=== PATIENT | female | born 1955 | race Caucasian/White ===

== ENCOUNTER 2016-10-10 17:35 | Inpatient (IN) | payer MEDICARE, OTHER ==
--- NOTE | ~2016-10-10 | DS ---
Unit #: [id number] #: [id number] Patient: BESSIE ELLSWORTH [id number] [address] [address] [id number] I MR#: [id number] NAME: BESSIE ELLSWORTH ROOM: 224 Age: 61 Sex: F Admission Date: 10/10/2016 : 1955 Discharge Date: 10/11/2016 Attending Physician: Rasheeda Pavon M.D. Referring Physician: Vania Dior M.D. Primary Care Physician: Vania Dior M.D. DISCHARGE SUMMARY ADMISSION DIAGNOSES 1. Left lower extremity cellulitis. 2. Hawa intertrigo. 3. Morbid obesity with body mass index 45. 4. Chronic respiratory failure on 2 L of oxygen per nasal cannula continuously. 5. Chronic obstructive pulmonary disease. 6. Continued tobacco abuse. 7. History of pulmonary embolus maintained on chronic anticoagulation with Coumadin. 8. Hypertension. 9. Hyperlipidemia. 10. Depression. 11. Hypothyroidism. 12. History of CVA. 13. Paroxysmal atrial tachycardia. 14. Venostasis. 15. Polypharmacy. PRIMARY DISCHARGE DIAGNOSES 1. Left lower extremity cellulitis, improved. 2. Hawa intertrigo. 3. Morbid obesity with body mass index 45. 4. Chronic respiratory failure on O2 at 2 L per minute per nasal cannula continuously. 5. Chronic obstructive pulmonary disease with continued tobacco abuse. 6. Hypertension. 7. History of paroxysmal atrial tachycardia on chronic anticoagulation. 8. History of pulmonary embolus on chronic anticoagulation. 9. Obstructive sleep apnea compliant with CPAP. 10. Venostasis. 11. Type 2 diabetes mellitus, controlled with hemoglobin A1c of 6.3. CONSULTANTS Wound care consult with PAMELA Dover. CONDITION Stable. DISPOSITION Home. DIAGNOSTIC STUDIES LABORATORY STUDIES: WBC 7.3, hemoglobin 12.6, hematocrit 38.4, platelet Unit #: [id number] #: [id number] Patient: BESSIE ELLSWORTH count 189,000. Sodium 141, potassium 4.2, chloride 101, CO2 35, glucose 148, BUN 17, creatinine 0.7, calcium 8.4, AST 46, ALT 25, alk phos 36, bili total 0.5, total protein 6.6, albumin 3.3, INR 2.3. Hemoglobin A1c 6.3. Preliminary blood cultures x2 no growth at 24 hours. TSH 2.47. IMAGING STUDIES: Left lower extremity duplex venous Doppler impression - negative examination. No evidence of left lower extremity DVT. DISCHARGE MEDICATIONS 1. Perforomist 20 mcg nebulized b.i.d. 2. Coumadin 4 mg p.o. daily. 3. Neurontin 300 mg p.o. b.i.d. 4. Doxepin HCL 150 mg p.o. at bedtime. 5. Paxil 60 mg p.o. daily. 6. Effexor XL 150 mg p.o. at bedtime. 7. Januvia 100 mg p.o. before breakfast. 8. Nystatin apply to affected area topically b.i.d. 9. [place] 3 one cap P.O. b.i.d. 10. Zetia 10 mg p.o. daily. 11. Triglide 160 mg p.o. daily. 12. Alprazolam 0.5 mg p.o. b.i.d. 13. Lopressor 25 mg p.o. b.i.d. 14. Oxygen 2 L per minute per nasal cannula continuously. 15. Furosemide increase to 40 mg p.o. b.i.d. x2 days, and then 20 mg p.o. b.i.d.; Lipitor 40 mg p.o. at bedtime. 16. Zestril 10 mg p.o. daily. 17. NovoLog 20 units subcu before meals. 18. Levemir 30 units subcu in the morning. 19. Levemir 50 units subcu at bedtime. 20. Multivitamin 1 p.o. daily. 21. Lortab 7.5/325 mg tab 1 p.o. t.i.d. as needed for pain from home medication supply. 22. Plavix 75 mg p.o. daily. 23. Tizanidine 4 mg p.o. every 8 hours as needed for muscle spasms. 24. Synthroid 0.025 mg p.o. daily in the morning. 25. Niacin SR 500 mg p.o. b.i.d. 26. Keflex 500 mg 1 mg tab 1 p.o. b.i.d. x7 days. DISCHARGE INSTRUCTIONS 1. The patient is to call and schedule a followup appointment with her primary care physician; Dr Dior to be seen in seven days. 2. The patient tells me that she has an appointment to see Dr. Hall for pulmonary function test tomorrow. She may keep this appointment if she is able to do so. Otherwise she is to call and reschedule with his office. 3. Patient is encouraged to follow constant carbohydrate and healthy heart diet, to encourage him to promote weight loss. 4. She is to follow wound care orders as given by PAMELA Dover. HOSPITAL COURSE The patient is a 61-year-old morbidly obese female with multiple comorbidities, who presented to [facility] emergency department on the day of admission with complaints of left leg redness and swelling. Patient has scraped her left leg getting to bed, and her symptoms developed subsequent to that time. The patient was diagnosed with left lower extremity cellulitis and started on IV vancomycin and Zosyn in the emergency department. Please refer to history and physical report for complete details. Unit #: [id number] #: [id number] Patient: BESSIE ELLSWORTH Left lower extremities cellulitis: The patient is doing well and has been evaluated by Dr. Pavon today. Her IV vancomycin and Zosyn will be discontinued. She will be discharged home today on Keflex 500 mg capsule 1 p.o. b.i.d. for seven days. She is to follow up with her primary care physician for further evaluation and management of the left lower extremity in seven days. Hawa intertrigo: The patient was evaluated by the wound care nurse. Detailed instructions have been left for the patient on the chart regarding this wound. Per order Dr. Pavon, however, she is to continue the nystatin to the affected area topically b.i.d. Again patient will followup with her primary care physician. Diabetes mellitus 2: Patient's Accu-Cheks have generally been controlled here. She has been on a constant carbon hydrate healthy heart diet and she is to continue that diet after discharge. Her hemoglobin A1c returned controlled at 6.3. Again she is to follow up with her primary care physician in this regard after discharge. She will resume current home medications including insulin. Chronic respiratory failure on continuous O2 and continued tobacco abuse. The patient has been advised to stop smoking. She is to continue O2 at current dose and followup with Dr. Hall, her vice chancellor with whom she is scheduled to have pulmonary function test tomorrow. Hypertension: Blood pressure trend has been controlled during the hospital course. There have been no changes in her current medications, other than a temporary increase in Lasix due to mild peripheral edema. History of paroxysmal atrial tachycardia on chronic anticoagulation: Patient is maintained on Coumadin and she has a therapeutic INR of 2.83 today. She is to continue her current dose of warfarin and followup with her primary care physician for further PT/INR and Coumadin management orders. Obstructive sleep apnea on CPAP: The patient again is established with Dr. Hall and is to follow with him. She has been compliant with CPAP during the hospital stay. Venostasis: Dr. Pavon has noted mild swelling in bilateral lower extremities today. She has increased the patient's diuretics to 40 mg p.o. b.i.d. for two days and then the patient is to resume her current dose of Lasix 20 mg p.o. b.i.d. Patient is also to elevate lower extremities when out of bed and when possible. The patient has been evaluated by Dr. Pavon. She has been cleared for discharge home with discharge and followup instructions as dictated above. Dictated by... Khadijah Baez A.P.R.N. for Fabienne Schaffer/idalia TD: 10/13/2016 12:49 JOB #: [id number] Unit #: [id number] #: [id number] Patient: BESSIE ELLSWORTH DISCHARGE SUMMARY Page 1 of 1 X Khadijah Baez APRN DISCHARGE SUMMARY
--- NOTE | ~2016-10-10 | A ---
[facility] Nutrition Therapy DATE: 10/11/16 Patient: BESSIE ELLSWORTH Physician: CELESTE Address: [address] [place] [address] STREET Room/Bed: [address] [place] [address], Zip: [place] [address] Admit Date: 10/10/16 Date of : [birth year] Height: 5 2 Weight: 248 112.6 NUTRITIONAL ASSESSMENT: REASON: High BMI note + MD consult for diet education Admitting Dx: 61 y/o female admitted with cellulitis PMH: PE, COPD on 2L home O2, HTN, HLD, CVA, DM, morbid obesity, hypothyroidism, depression, tobacco use Anthropometrics: Ht: 62", Wt: 112.6 kg (248 lbs), BMI: 45 (Stage III obese) Labs: Glucose 148, POC 140, no new lipid panel, current A1C lab pending (last A1C was 6.0 03/05/16) Meds: Novolog, Levemir Assessment: Chart reviewed, events noted. See admitting dx and PMH as stated above. RD consulted to provide diet education due to hx of diabetes and morbid obesity. Patient is currently on CC/HH diet, reports no issues. RD provided both verbal and written diet education on CC/HH diet with 1800 calorie 5-day sample meal plan and diabetes label reading tips. Patient reported receiving diet education in the past, stating "I know what to do I just need to do it." Reviewed materials with her, showed good understanding and demonstrated the need to find motivation to make dietary changes. RD reviewed the long-term complications of uncontrolled diabetes and heart disease. RD encouraged patient to make weekly/monthly diet goals and to decrease intake of high-sugar desserts and drinks, as this was one major thing patient admitted she needed to change. She had no further questions at this time, RD left contact info. Recommendations: Continue current diet, encourage compliance of diet education provided as described above. Please call or consult RD with any further nutritional needs. Respectfully, Missy Brice, [place], LD [employer] [facility] Nutrition Therapy DATE: 10/11/16 Patient: BESSIE ELLSWORTH Physician: CELESTE Address: [address] [place] [address] STREET Room/Bed: [address] [place] [address], Zip: [place] [address] Admit Date: 10/10/16 Date of : [birth year] Height: 5 2 Weight: 248 112.6 cc: client file
--- NOTE | ~2016-10-10 | US85 ---
[facility] A Service of [facility] & [facility] RADIOLOGY TEXT RESULTS PATIENT: BESSIE ELLSWORTH LOCATION: C2A 224-01 : [birth year] UNIT #: [id number] AGE: [address]: Rasheeda Pavon MD SEX: F ORDER DR: [id number] [facility] [address] [place] [place], [place] [address] [id number] I MR#: [id number] #: [id number] NAME: BESSIE ELLSWORTH : 1955 SEX: F STUDY DATE/TIME: 10/10/2016 18:42 UNIT: [facility] ROOM: Critical access hospital STUDY DESCRIPTION: LE Veins Unilat or Ltd Stdy Attending Physician: Deepa Law M.D. Referring Physician: Vania Dior M.D. Ordering Physician: Matthew Infante M.D. Primary Care Physician: Vania Dior M.D. MEDICAL IMAGING REPORT This report is preliminary unless electronic signature is present EXAM Left lower extremity venous Doppler HISTORY Pain and swelling left lower extremity, injured leg 5 days ago, pain ever since. TECHNIQUE Venous ultrasound examination of the left lower extremity was performed using grayscale, spectral Doppler and color flow Doppler imaging. FINDINGS The examination is negative. There is no evidence of left lower extremity deep venous thrombus from the groin to the lower calf. Visualized greater saphenous vein is also patent. IMPRESSION Negative examination. No evidence of left lower extremity deep venous thrombosis. Dictated by... Warren Shaw M.D. THIS IS AN ELECTRONICALLY VERIFIED REPORT Warren Shaw M.D. at 10/11/2016 10:59 PM PEREZ/ynes TD: 10/10/2016 23:23 JOB #: [id number] MEDICAL IMAGING REPORT Page 1 of 1 COPY
--- NOTE | ~2016-10-10 | HP ---
Unit #: [id number] #: [id number] Patient: BESSIE ELLSWORTH [id number] [place], [place] [address] [id number] I MR#: [id number] NAME: BESSIE ELLSWORTH ROOM: 224 Age: 61 Sex: F Admission Date: 10/10/2016 : 1955 Attending Physician: Deepa Law M.D. Referring Physician: Vania Dior M.D. Primary Care Physician: Vania Dior M.D. HISTORY AND PHYSICAL CHIEF COMPLAINT Left leg redness, swelling. HISTORY OF PRESENT ILLNESS The patient is a 61-year-old female with a past medical history of chronic respiratory failure, COPD, pulmonary embolism, chronic anticoagulation, hypertension, hyperlipidemia, depression, hypothyroidism, cerebrovascular accident, paroxysmal atrial tachycardia, venostasis, tobacco abuse, who presented to the emergency department for evaluation of the above. The patient states that she scraped her leg getting into the bed about a weeks ago. She has had increasing pain, redness, and swelling since that time. She has also noticed some drainage from the leg. She denies any fever. No cough or cold symptoms. No bowel or bladder problems. In the emergency department initial temperature was 100.3, pulse 93, white blood cell count is 9. A left lower extremity venous Doppler is pending at the time of dictation. She was given vancomycin. She is being admitted to [facility] for evaluation and further treatment. PAST MEDICAL HISTORY 1. Admission to [facility] 03/04/2016 through 03/05/2016 for sigmoid colitis. 2. Chronic respiratory failure on 2 L of oxygen per nasal cannula continuous. 3. COPD with continued tobacco abuse. 4. Diabetes. 5. Pulmonary embolism on chronic anticoagulation with Coumadin. 6. Depression. 7. Hypertension. 8. Hyperlipidemia. 9. Morbid obesity with a BMI of 45. 10. Hypothyroidism. 11. History of cerebrovascular accident. 12. Venostasis. 13. Recently diagnosed bladder cancer followed by Dr. Jaramillo. 14. Paroxysmal atrial tachycardia. 15. Echocardiogram 10/31/2012 was technically extremely limited, ejection fraction was noted to be 55%. PAST SURGICAL HISTORY 1. Hernia repair. 2. Hysterectomy. Unit #: [id number] #: [id number] Patient: BESSIE ELLSWORTH 3. Surgery for ectopic . 4. Appendectomy. 5. "Heart surgery as a child." SOCIAL HISTORY The patient continues to smoke at least a pack of cigarettes daily. There is no alcohol use. FAMILY HISTORY Notable for diabetes. ALLERGIES No known allergies. HOME MEDICATIONS Niacin, omega 3, atorvastatin, fenofibrate, venlafaxine, paroxetine, doxepin, metoprolol, gabapentin, Plavix, Zetia, Januvia, levothyroxine, furosemide, Coumadin, tizanidine, hydrocodone, lisinopril, alprazolam, multivitamin. Home medications will need to be reviewed and verified. REVIEW OF SYSTEMS A complete review of systems is negative except as indicated in the HPI. The patient's brother, Pedro Pablo Riggs, is at the bedside and is very concerned about the patient's living environment. He states that she is a hoarder. He states that she showers one to two times a month. He does not think that she is able to take care of herself. He states that he has contact Adult Protective Services regarding this issue. Please see the patient denies any suicidal or homicidal ideations. PHYSICAL EXAMINATION VITAL SIGNS: Temperature is 100.3, pulse 93, respirations 18, blood pressure 130/70. Oxygen saturation is 98% on 2 L. GENERAL: The patient is a female who is awake and alert in no acute distress. HEENT: The head is atraumatic. Mucous membranes are moist. NECK: Supple. Trachea is midline. CARDIOVASCULAR: Regular rate and rhythm. LUNGS: Clear to auscultation bilaterally with no increased work of breathing. ABDOMEN: Obese, soft, nontender with bowel sounds present in all four quadrants. EXTREMITIES: The left lower extremity demonstrates an eschar with surrounding warmth erythema, edema and tenderness to palpation in the background of chronic lymphedema. NEUROLOGIC: The patient is awake and alert. She follows commands. PSYCH: Mood and affect are normal. The patient is cooperative. SKIN: Demonstrates the previously described abnormalities. Additionally beneath the patient's pannus is erythema and warmth with associated weeping, consistent with bronson intertrigo. DIAGNOSTIC STUDIES IMAGING STUDIES: Venous Doppler is pending. LABORATORY STUDIES: Complete blood count is completely normal. Comprehensive metabolic panel notable for chloride of 97, bicarb is 33, AST is 49, INR is 3.1. ASSESSMENT Unit #: [id number] #: [id number] Patient: BESSIE ELLSWORTH The patient is a 61-year-old female with: 1. Left lower extremity cellulitis. The patient received vancomycin in the emergency department. 2. Bronson intertrigo. 3. Morbid obesity with a BMI of 45. 4. Chronic respiratory failure on 2 L of oxygen per nasal cannula continuous. 5. COPD with continued tobacco abuse. 6. Pulmonary embolus maintained on chronic anticoagulation with Coumadin. 7. Hypertension. 8. Hyperlipidemia. 9. Depression. 10. Hypothyroidism. 11. History of cerebrovascular accident. 12. Paroxysmal atrial tachycardia. 13. Venostasis. 14. Polypharmacy. PLAN 1. Admit to med/surg. 2. Healthy heart consistent carb diet. 3. Nutrition consult regarding morbid obesity. 4. Blood cultures x2. 5. Vancomycin IV and Zosyn IV for cellulitis pending further workup. 6. Followup results of venous Doppler. 7. Nystatin cream to affected area b.i.d. 8. Wound care consult. 9. PT and OT to evaluate and treat. 10. Care manger, social work consult regarding home safety. 11. Supplemental oxygen. 12. Check TSH. 13. Hemoglobin A1c. 14. Low dose sliding scale insulin with Accu-Cheks. 15. Repeat labs in the morning including INR. 16. Check CPK. 17. Additional workup and consultants based on above. Dictated by Fabienne Guardado/idalia TD: 10/11/2016 06:12 JOB #: [id number] HISTORY AND PHYSICAL Page 1 of 1 X Deepa Law MD X HISTORY AND PHYSICAL
[2016-10-10 17:24] LABS: BASOPHIL% 0.4 % (0-2.5); EOSINOPHIL# 0.1 X10e3 (0-0.7); EOSINOPHIL% 1.5 % (0.0-7.0); HEMATOCRIT 38.9 % (35.0-45.0); HEMOGLOBIN 12.8 gm/dL (12.0-16.0); LYMPHOCYTE# 3.2 X10e3 (1.0-3.5); LYMPHOCYTE% 35.7 % (17.0-45.0); MEAN CELL VOLUME 92.3 FL (83-96); MEAN CORPUSCULAR HEMOGLOBIN 30.4 PG (28-34); MEAN PLATELET VOLUME 8.8 FL (6.5-11.5); MONOCYTE# 0.8 X10e3 (0-1.0); MONOCYTE% 9.1 % (3.0-12.0); NEUTROPHIL# 4.8 X10e3 (1.5-7.1); NEUTROPHIL% 53.3 % (40-75); PLATELET COUNT 198 X10e3 (140-420); RED BLOOD COUNT 4.22 X10e (3.90-5.30); RED CELL DISTRIBUTION WIDTH 14.6 % (11.0-15.5)
[2016-10-10 17:25] LABS: DIFF IND NO
[~2016-10-10 17:35] MED LIST: ADVAIR 100-501 EACH IH; ADVAIR HFA 115-12 GM IH; ALBUTEROL; ALBUTEROL MININEB NEB; ASPIRIN PO; ASPIRIN81 M2 PO; ASPIRIN81 MG PO; AZITHROMYCIN500 MG PO; AZMACORT20 GM INH; BAYER CHEWABLE81 MG PO; BIPAP; CALCIUM 500 + D1 TAB PO; CALCIUM CITRATE1 T15 PO; CLARITIN10 M2 PO; CLINDAMYCIN HC300 MG PO; CLOPIDOGREL BIS75 MG PO; COMBIVENT INH14.7 GM INH; COMBIVENT U/D3 M2 INH; COMBIVENT14.7 GM INH; COUMADIN PO; COUMADIN4 MG PO; DOXEPIN HCL150 MG PO; DOXEPIN HCL50 MG PO; DOXEPIN PO; EFFEXOR XR75 MG PO; EFFEXOR75 M2 PO; FENOFIBRATE160 MG PO; FENOFIBRIC ACI105 MG PO; FIBER LAXATIVE0.52 G PO; FLAGYL PO; GABAPENTIN300 M2 PO; GABAPENTIN300 MG PO; GLUCOPHAGE XR500 MG PO; GLUCOPHAGE500 M1 PO; HUMALOG100 U/M2 SUBQ; HUMALOG100 U/ML SUBQ; HYDROCODON-ACE1 EAC7 PO; HYDROCODONE-APA1 T58 PO; JANUVIA PO; JANUVIA25 MG PO; LASIX PO; LASIX20 MG PO; LEVAQUIN PO; LEVEMIR SUBQ; LEVEMIR100 U/ML SUBQ; LEVEMIR100 UNITS/ SUBQ; LEVOTHROID25 MCG PO; LEVOTHYROXINE25 MCG PO; LIDODERM30 EA TOP; LIPITOR PO; LIPITOR40 MG DOB; LIPITOR40 MG PO; LISINOPRIL PO; LISINOPRIL20 MG PO; LOPRESSOR PO; LORTAB 7.5-5001 TAB PO; LORTAB 7.51 TAB PO; LOVAZA1 G PO; LOVENOX40 MG/0.4 INJ; MAGNESIUM400 M1 PO; METFORMIN HCL500 M2 PO; METFORMIN PO; METHADONE PO; METOPROLOL TAR25 MG DOB; METOPROLOL TAR25 MG PO; METOPROLOL TART25 MG PO; MIRALAX255 GM PO; MS CONTIN PO; MULTI VITAMIN1 EACH PO; MULTI-VITAMIN1 EAC1 PO; MULTI-VITAMIN1 TAB PO; NASONEX17 GM; NEURONTIN300 MG PO; NIACIN500 M1 PO; NICOTINE PATCH1 EACH TD; NICOTINE TRANSD21 MG EXT; NORCO 5/325 TAB1 TAB PO; NOVOLOG100 U/ML SUBQ; OXYGEN; PAROXETINE HCL40 MG PO; PAXIL PO; PAXIL30 MG PO; PHENERGAN PO; PLAVIX PO; PREDNISONE PO; PREDNISONE10 MG PO; SEROQUEL PO; SLO-NIACIN500 MG PO; SYMBICORT 160/4.6 G1 IH; SYMBICORT INH; SYNTHROID PO; SYNTHROID25 MCG PO; TAGAMET PO; TIZANIDINE HCL4 M1 PO; TRICOR PO; TRIGLIDE160 M1 PO; VENLAFAXINE HCL75 M1 PO; VENLAFAXINE HCL75 M2; VERAMYST NASAL SPRAY; WARFARIN SODIUM4 M1 PO; WELCHOL625 MG PO; ZANAFLEX PO; ZANAFLEX4 M1 PO; ZETIA PO; ZITHROMAX PO
[2016-10-10 17:46] LABS: ALBUMIN SERUM 3.5 g/dL (3.5-5.0); BILIRUBIN, DIRECT 0.1 mg/dL (0.0-0.2); BILIRUBIN,INDIRECT 0.3 mg/dL (0.0-0.9); BILIRUBIN,TOTAL 0.4 mg/dL (0.2-2.0); BUN/CREATININE RATIO 23.75; CALCIUM SERUM 8.6 mg/dL (8.4-10.2); CREATININE SERUM 0.8 mg/dL (0.6-1.4); GLOM FILT RATE Estimated 80.8 mL/min (>60); POTASSIUM 4.2 mmol/L (3.5-5.1)
[2016-10-10 18:14] LABS: INR 3.1; PROTHROMBIN TIME (PATIENT) 34.1 SECONDS (9.6-11.5)
[2016-10-10] MEDS ORDERED: NIACIN ER500 MG PO (18:27)
[2016-10-10] MEDS ORDERED: OMEGA-31000 M1 PO (18:27)
[2016-10-10] MEDS ORDERED: TRIGLIDE160 M1 PO (18:28)
[2016-10-10] MEDS ORDERED: LIPITOR40 MG PO (18:28)
[2016-10-10] MEDS ORDERED: VENLAFAXINE HC150 M1 PO (18:29)
[2016-10-10] MEDS ORDERED: PAXIL PO (18:29)
[2016-10-10] MEDS ORDERED: DOXEPIN HCL150 MG PO (18:30)
[2016-10-10] MEDS ORDERED: METOPROLOL TAR25 MG PO (18:30)
[2016-10-10] MEDS ORDERED: ZETIA PO (18:31)
[2016-10-10] MEDS ORDERED: GABAPENTIN300 MG PO (18:31)
[2016-10-10] MEDS ORDERED: CLOPIDOGREL75 MG PO (18:31)
[2016-10-10] MEDS ORDERED: EFFEXOR75 M1 PO (18:33)
[2016-10-10] MEDS ORDERED: JANUVIA PO (18:33)
[2016-10-10] MEDS ORDERED: COUMADIN4 MG PO (18:34)
[2016-10-10] MEDS ORDERED: LEVOTHYROXINE25 MC1 PO (18:34)
[2016-10-10] MEDS ORDERED: LASIX20 MG PO (18:34)
[2016-10-10] MEDS ORDERED: TIZANIDINE HCL4 M1 PO (18:35)
[2016-10-10] MEDS ORDERED: LORTAB 7.5-3251 EACH PO (18:36)
[2016-10-10] MEDS ORDERED: MULTI-VITAMIN1 EAC1 PO (18:37)
[2016-10-10] MEDS ORDERED: ZESTRIL10 M2 PO (18:37)
[2016-10-10] MEDS ORDERED: ALPRAZOLAM0.5 MG PO (18:37)
[2016-10-10] MEDS ORDERED: NOVOLOG100 UNITS/ SUBQ (18:38)
[2016-10-10] MEDS ORDERED: LEVEMIR100 UNITS/ SUBQ ×2 (18:38→18:39)
[2016-10-10] MEDS ORDERED: PERFOROMIS20 MCG/2 M INH (18:42)
[2016-10-10] MEDS ORDERED: OXYGEN (18:43)
[2016-10-11 08:53] LABS: BASOPHIL% 0.4 % (0-2.5); EOSINOPHIL# 0.1 X10e3 (0-0.7); EOSINOPHIL% 1.9 % (0.0-7.0); HEMATOCRIT 38.4 % (35.0-45.0); HEMOGLOBIN 12.6 gm/dL (12.0-16.0); LYMPHOCYTE# 2.3 X10e3 (1.0-3.5); LYMPHOCYTE% 31.2 % (17.0-45.0); MEAN CELL VOLUME 92.9 FL (83-96); MEAN CORPUSCULAR HEMOGLOBIN 30.5 PG (28-34); MEAN CORPUSCULAR HGB CONC 32.8 g/dL (30-36); MEAN PLATELET VOLUME 8.6 FL (6.5-11.5); MONOCYTE# 0.6 X10e3 (0-1.0); MONOCYTE% 8.3 % (3.0-12.0); NEUTROPHIL# 4.3 X10e3 (1.5-7.1); NEUTROPHIL% 58.2 % (40-75); PLATELET COUNT 189 X10e3 (140-420); RED BLOOD COUNT 4.14 X10e (3.90-5.30); RED CELL DISTRIBUTION WIDTH 14.9 % (11.0-15.5); WHITE BLOOD COUNT 7.3 X10e3 (4.0-10.5)
[2016-10-11 08:54] LABS: DIFF IND NO
[2016-10-11 09:08] LABS: INR 2.3; PROTHROMBIN TIME (PATIENT) 25.5 SECONDS (9.6-11.5)
[2016-10-11 09:20] LABS: ALBUMIN SERUM 3.3 g/dL (3.5-5.0); BILIRUBIN,TOTAL 0.5 mg/dL (0.2-2.0); BUN/CREATININE RATIO 24.28; CALCIUM SERUM 8.4 mg/dL (8.4-10.2); CREATININE SERUM 0.7 mg/dL (0.6-1.4); GLOM FILT RATE Estimated 94.8 mL/min (>60); POTASSIUM 4.2 mmol/L (3.5-5.1); PROTEIN TOTAL SERUM 6.6 g/dL (6.0-8.3)
[2016-10-11] MEDS ORDERED: KEFLEX500 M2 PO (16:08)
== END 2016-10-11 19:26 | disposition home or self-care (01) | DRG 603 ==
LOC: CED 17:35 → CEDOF 19:45 → C2A 22:51
PROVIDERS: Emergency Medicine; Family Medicine
DX: L03.116 Cellulitis of left lower limb (principal); J96.10 Chronic respiratory failure, unspecified whether with hypoxia or hypercapnia; B37.89 Other sites of candidiasis; Z68.42 Body mass index [BMI] 45.0-49.9, adult; I47.1 Supraventricular tachycardia; E66.01 Morbid (severe) obesity due to excess calories; F17.210 Nicotine dependence, cigarettes, uncomplicated; Z71.6 Tobacco abuse counseling; L30.4 Erythema intertrigo; Z99.81 Dependence on supplemental oxygen; J44.9 Chronic obstructive pulmonary disease, unspecified; Z86.711 Personal history of pulmonary embolism; Z79.01 Long term (current) use of anticoagulants; I10 Essential (primary) hypertension; E78.5 Hyperlipidemia, unspecified; F32.9 Major depressive disorder, single episode, unspecified; E03.9 Hypothyroidism, unspecified; Z86.73 Personal history of transient ischemic attack (TIA), and cerebral infarction without residual deficits; I87.8 Other specified disorders of veins; G47.33 Obstructive sleep apnea (adult) (pediatric); E11.9 Type 2 diabetes mellitus without complications; Z90.49 Acquired absence of other specified parts of digestive tract; Z90.710 Acquired absence of both cervix and uterus; Z83.3 Family history of diabetes mellitus; Z79.02 Long term (current) use of antithrombotics/antiplatelets; Z79.84 Long term (current) use of oral hypoglycemic drugs
CPT/HCPCS: 36415; 80048; 80053; 80076; 82550; 82947; 83036; 84443; 85025; 85610; 87040; 93971; 94640; 94760; 96360; 97162; 99285; G8978-GP; G8979-GP; G8980-GP; J1815; J2543; J3370

== ENCOUNTER → 2016-11-22 | Outpatient (CLI) | payer MEDICARE, OTHER ==
[~2016-11-22] MED LIST changes: +ALPRAZOLAM0.5 MG PO; +CLOPIDOGREL75 MG PO; +EFFEXOR75 M1 PO; +KEFLEX500 M2 PO; +LEVOTHYROXINE25 MC1 PO; +LORTAB 7.5-3251 EACH PO; +NIACIN ER500 MG PO; +NOVOLOG100 UNITS/ SUBQ; +OMEGA-31000 M1 PO; +PERFOROMIS20 MCG/2 M INH; +VENLAFAXINE HC150 M1 PO; +ZESTRIL10 M2 PO
--- NOTE | ~2016-11-22 | TH ---
Unit #: [id number] #: [id number] Patient: BESSIE ELLSWORTH [id number] [address] [id number] O MR#: [id number] NAME: BESSIE ELLSWORTH : 1955 SEX: F STUDY DATE/TIME: 11/22/2016 UNIT: [facility] ROOM: STUDY DESCRIPTION: Attending Physician: Romi Hogan M.D. Referring Physician: Romi Hogan M.D. Primary Care Physician: Vania Dior M.D. CARDIOLOGY REPORT EXAM Lexiscan Cardiolite stress test, nuclear portion. PROCEDURE Using technetium 99m labeled Cardiolite, rest and stress SPECT images were obtained. Multiple SPECT images were obtained in various views including horizontal and vertical long axis and short axis views of the left ventricle. Images were obtained by gated SPECT method. The patient was administered 11.29 mCi of Cardiolite at rest. The patient was administered 31 mCi of Cardiolite after Lexiscan infusion was completed. On the stress images, there is normal perfusion noted. The rest images showed normal perfusion. Comparing rest and stress images, there is no obvious stress-induced ischemia noted. It must be noted that the images appear compressed with not much of a lateral wall. The left ventricular ejection fraction is calculated to be 77%. There is no focal wall motion abnormality seen. CONCLUSION 1. No obvious stress-induced ischemia noted. 2. The left ventricular ejection fraction is calculated to be 77%. 3. There is no focal wall motion abnormality seen. 4. The left ventricle appears compressed due to patient's large body habitus. 5. Technically extremely limited study. Clinical correlation is requested. Dictated by... Fabienne Ron TD: 11/22/2016 10:46 JOB #: [id number] Unit #: [id number] #: [id number] Patient: BESSIE ELLSWORTH CARDIOLOGY REPORT Page 1 of 1 X Romi Hogan MD <ELECTRONICALLY SIGNED> 01/21/17 [id number] CARDIOLOGY REPORT
== END | disposition home or self-care (01) ==
LOC: CNUC 06:46
DX: I25.10 Atherosclerotic heart disease of native coronary artery without angina pectoris (principal)
CPT/HCPCS: 78452; 93017; A9500; J2785

== ENCOUNTER → 2017-02-03 | Outpatient (CLI) | payer MEDICARE, OTHER ==
--- NOTE | ~2017-02-03 | CR58 ---
[facility] A Service of [facility] & [facility] RADIOLOGY TEXT RESULTS PATIENT: BESSIE ELLSWORTH LOCATION: [facility] : [birth year] UNIT #: [id number] AGE: [address]: Juan Garcia MD SEX: F ORDER DR: [id number] [facility] [address] [facility] [place], [place] [address] [id number] O MR#: [id number] Acc #: [id number] NAME: BESSIE ELLSWORTH : 1955 SEX: F STUDY DATE/TIME: 02/03/2017 8:07 UNIT: [facility] ROOM: STUDY DESCRIPTION: CR Cervical Spine 2 or 3 Views Attending Physician: Juan Garcia M.D. Referring Physician: Juan Garcia M.D. Ordering Physician: Juan Garcia M.D. Primary Care Physician: Vania Dior M.D. MEDICAL IMAGING REPORT This report is preliminary unless electronic signature is present EXAM Cervical spine, 3 views, 02/03/2017 HISTORY Cervical spine pain, degenerative disc disease for 2 years, no known injury with left upper extremity numbness. FINDINGS Three views of the cervical spine demonstrate no fracture. There is approximately 4 mm grade I anterolisthesis of C4 on C5, which is likely due to facet arthropathy. There is mild disc space narrowing at C4-5 and there is moderate narrowing at C5-6 and C6-7. Anterior and posterior osteophytes are seen from C3-C7 and there is degenerative change involving the articular facets. There is no retropharyngeal soft tissue swelling. Scoliosis of the thoracic spine is noted. IMPRESSION Multilevel degenerative change in the cervical spine. No acute abnormality. Dictated by... Luis Major M.D. THIS IS AN ELECTRONICALLY VERIFIED REPORT Luis Major M.D. at 02/06/2017 6:07 AM TONI/ynes TD: 02/03/2017 20:10 JOB #: [id number] MEDICAL IMAGING REPORT Page 1 of 1 COPY
== END | disposition home or self-care (01) ==
LOC: CRAD 07:44
DX: M50.323 Other cervical disc degeneration at C6-C7 level (principal); M47.892 Other spondylosis, cervical region
CPT/HCPCS: 72040